=== PATIENT | female | born 1975 ===

== ENCOUNTER 2018-08-22 15:45 | Emergency (ER) | payer MEDICAID ==
[2018-08-22 15:45] VITALS: BMI 26.5
[2018-08-22 15:52] VITALS: O2SAT 99
[2018-08-22] MEDS ORDERED: Rabies Immune Globulin 150 INTLU/ML VIAL IM ONE (16:36)
--- NOTE | 2018-08-22 16:45 | ED PDOC ---
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 Patient states that she had a visit with her PMD today, who advised her to go to the ED for the vaccine series. Patient states that 2x weeks ago, she was unloading groceries from her car to her house when a stray cat ran into her house through the front door and started fighting with her dog. Patient tried to separate them when the cat subsequently bit her left hand. Wound has healed completely, and patient never sought medical attention after the bite until now. Patient denies having any complaints at present. Otherwise: (-) fever. Tetanus is up to date. Last menstrual period: 5x days ago PMD: Annalisa Ochoa MD - Animal Bite Description Of The Attack: Unprovoked Attack Description Of The Animal: Stray Animal's Immunization Status: Unknown Past Medical History Reviewed: Historical Data, Nursing Documentation, Vital Signs Vital Signs: Last Vital Signs Temp 97.6 F 08/22/18 15:48 Pulse 79 08/22/18 15:48 Resp 16 08/22/18 15:48 BP 148/97 H 08/22/18 15:48 Pulse Ox 99 08/22/18 15:48 - Medical History PMH: No Chronic Diseases - Surgical History Surgical History: Cholecystectomy, Hernia Repair, - Family History Family History: States: No Known Family Hx - Home Medications Home Medications: Ambulatory Orders Medication Instructions Recorded RX: Acetaminophen [Tylenol 325mg 650 mg PO Q4 PRN #0 tab 12/12/14 tab] RX: Levofloxacin 500 mg PO DAILY #6 tab 12/12/14 - Allergies Allergies/Adverse Reactions: Allergies Allergy/AdvReac Type Severity Reaction Status Date / Time No Known Allergies Allergy Verified 03/25/15 09:47 Review of Systems ROS Statement: Except As Marked, All Systems Reviewed And Found Negative Constitutional: Negative for: Fever Skin: Positive for: Other (bite to left hand, has healed) Physical Exam - Reviewed Nursing Documentation Reviewed: Yes Vital Signs Reviewed: Yes - Physical Exam Comments: GENERAL APPEARANCE: Patient is awake, alert, oriented x 3, resting comfortably, in no acute distress. SKIN: Warm, dry; (-) cyanosis. NECK: Supple, FROM CHEST AND RESPIRATORY: (-) rales, (-) rhonchi, (-) wheezes; breath sounds equal bilaterally. Respirations even and nonlabored. HEART AND CARDIOVASCULAR: (-) irregularity LEFT UPPER EXTREMITY: 2 healed puncture wounds to dorsum of proximal first metacarpal of left hand. (-) erythema, (-) fluctuance, (-) tenderness, (-) warmth. Full ROM of extremity. Sensation intact, capillary refill <2 seconds. NEURO AND PSYCH: Mental status as above. Gait: steady. Speech: clear. (-) facial asymmetry - ECG O2 Sat by Pulse Oximetry: 99 (RA) Pulse Ox Interpretation: Normal Medical Decision Making Medical Decision Makin:10 Clinical impression: 43 year old female: need for rabies prophylaxis, healed cat bite. Initial plan: * Rabies immunoglobulin 1,400 intlu IM once * rabavert vaccine inj 2.5 units IM once * reevaluation 1645 ED staff notified from pharmacy that immunoglobulin had to be obtained from [facility]. 1800 On re-evaluation, patient reports improvement of symptoms. On exam, patient remains AAOx3, in no acute distress. Vitals stable. Lab/Diagnostic results d/w the patient in great detail. Diagnosis of need for rabies vaccination, healed cat bite d/w the patient. Based on history, exam and diagnostic results, plan will be for follow up in ED for subsequent vaccines. Patient instructed to follow-up with pmd / referral provided / the clinic in 1- 2 days without fail. Return to the emergency room at any time for any new or worsening symptoms. Patient states she fully agrees with and understands discharge instructions. States that she agrees with the plan and disposition. Verbalized and repeated discharge instructions and plan. I have given the patient opportunity to ask any additional questions. Scribe Attestation: Documented byAlanna Brunson, acting as a scribe for Alanna Goncalves. Provider Scribe Attestation: All medical record entries made by the Scribe were at my direction and personally dictated by me. I have reviewed the chart and agree that the record accurately reflects my personal performance of the history, physical exam, medical decision making, and the department course for this patient. I have also personally directed, reviewed, and agree with the discharge instructions and dis position. Disposition - Clinical Impression Clinical Impression: Cat bite, Need for rabies vaccination - Patient ED Disposition Is Patient to be Admitted: No Counseled Patient/Family Regarding: Studies Performed, Diagnosis, Need For Followup, Rx Given - Disposition Referrals: Annalisa Ochoa MD [Family Provider] - Disposition: Routine/Home Disposition Time: 18:00 Condition: STABLE Additional Instructions: RETURN TO ED ON 08/25/18, 08/29/18, AND 09/05/18 FOR COMPLETION OF RABIES VACCINES SERIES. REGRESE A ED EL 08/25/18, 08/29/18 y 09/05/18 PARA COMPLETAR LA SERIE DE RABIES VACCINES. La atencin mdica de emergencia que recibi hoy se dirigi a raven sntomas agudos. Si le recetaron algn medicamento, llnelo y tmelo segn las indicaciones. Los sntomas pueden tardar varios toro en resolverse. Regrese al Departamento de Emergencias si raven sntomas empeoran, no mejoran o si tiene otros problemas. Comunquese con chaudhary mdico dentro de 2 toro para joshua nueva evaluacin y margarita un seguimiento o llame a martínez de los mdicos / clnicas a los que diaz sido referido y que figuran en el formulario de Informacin de visita al paciente que se incluye en chaudhary paquete de isamar. Lleve todos los documentos que le entregaron al momento del isamar junto con todos los medicamentos que est tomando para chaudhary visita de seguimiento. Nuestro tratamiento no puede reemplazar la atencin mdica continua por parte de un proveedor de atencin primaria (PCP) fuera del departamento de emergencias. Instructions: Animal and Human Bites, Rabies Immune Globulin (Human), Rabies Vaccine Forms: [facility] (Japanese) Print Language: NORWEGIAN - POJuan A Present On Arrival: None
[2018-08-22 18:45] VITALS: BP 130/78; PULSE 78; RESP 18; TEMP 98
== END 2018-08-22 18:43 | disposition home or self-care (01) ==
LOC: H.ER 15:45
DX: S69.92XA Unspecified injury of left wrist, hand and finger(s), initial encounter (principal); Z20.3 Contact with and (suspected) exposure to rabies; W55.01XA Bitten by cat, initial encounter; Z23 Encounter for immunization

== ENCOUNTER 2018-08-25 14:40 | Emergency (ER) | payer MEDICAID ==
[2018-08-25 14:41] VITALS: BMI 26.5
[2018-08-25 14:51] VITALS: BP 133/81; PULSE 62; RESP 18; TEMP 98.7; O2SAT 99
--- NOTE | 2018-08-25 15:13 | ED PDOC ---
HPI: General Adult Time Seen by Provider: 08/25/18 15:00 Chief Complaint (Nursing): Rabies Vaccine Series Chief Complaint (Provider): Rabies Vaccine Series History Per: Patient History/Exam Limitations: no limitations Onset/Duration Of Symptoms: Days (x3) Current Symptoms Are (Timing): Better Additional Complaint(s): 43 year old female presents to the ED for her second Rabies shot. Patient was initially seen on 08/22/2018 for a cat bite and was given her first dose then. Denies any complications, fever, or chills. PMD: Annalisa Ochoa Past Medical History Reviewed: Historical Data, Nursing Documentation, Vital Signs Vital Signs: Last Vital Signs Temp 98.7 F 08/25/18 14:50 Pulse 62 08/25/18 14:50 Resp 18 08/25/18 14:50 BP 133/81 08/25/18 14:50 Pulse Ox 99 08/25/18 14:50 - Medical History PMH: No Chronic Diseases - Surgical History Surgical History: Cholecystectomy, Hernia Repair, - Family History Family History: States: Unknown Family Hx - Home Medications Home Medications: Ambulatory Orders Medication Instructions Recorded Acetaminophen [Tylenol 325mg tab] 650 mg PO Q4 PRN #0 tab 12/12/14 Levofloxacin 500 mg PO DAILY #6 tab 12/12/14 - Allergies Allergies/Adverse Reactions: Allergies Allergy/AdvReac Type Severity Reaction Status Date / Time No Known Allergies Allergy Verified 08/25/18 15:04 Review of Systems ROS Statement: Except As Marked, All Systems Reviewed And Found Negative Constitutional: Negative for: Fever, Chills Physical Exam - Reviewed Nursing Documentation Reviewed: Yes Vital Signs Reviewed: Yes - Physical Exam Appears: Positive for: No Acute Distress Cardiovascular/Chest: Positive for: Regular Rate, Rhythm Respiratory: Positive for: Normal Breath Sounds. Negative for: Respiratory Distress Neurologic/Psych: Positive for: Alert, Oriented (x3). Negative for: Motor/Sensory Deficits - ECG O2 Sat by Pulse Oximetry: 99 (RA) Pulse Ox Interpretation: Normal Medical Decision Making Medical Decision Making: Time: 1505 Initial Impression: Rabies vaccine series Initial Plan: --Rabies vaccine 2.5 units IM --Pt instructed to return on 08/29 for her third dose or sooner if complications arise. Scribe Attestation: Documented by Ginna Klein, acting as a scribe for Humera Cloud PA-C. Provider Scribe Attestation: All medical record entries made by the Scribe were at my direction and personally dictated by me. I have reviewed the chart and agree that the record accurately reflects my personal performance of the history, physical exam, medical decision making, and the department course for this patient. I have also personally directed, reviewed, and agree with the discharge instructions and disposition. Disposition - Clinical Impression Clinical Impression: Rabies, need for prophylactic vaccination against - Patient ED Disposition Is Patient to be Admitted: No - Disposition Disposition: Routine/Home Disposition Time: 15:25 Condition: FAIR Instructions: Rabies Vaccine Print Language: DIVEHI
== END 2018-08-25 15:35 | disposition home or self-care (01) ==
LOC: H.ER 14:40
DX: Z29.14 Encounter for prophylactic rabies immune globulin (principal)

== ENCOUNTER 2018-08-29 11:55 | Emergency (ER) | payer MEDICAID ==
[2018-08-29 12:01] VITALS: BMI 27.6
[2018-08-29 12:02] VITALS: BP 138/81; PULSE 68; RESP 17; TEMP 98.1; O2SAT 99
--- NOTE | 2018-08-29 12:42 | ED PDOC ---
HPI: General Adult Time Seen by Provider: 08/29/18 12:41 Chief Complaint (Nursing): Rabies Vaccine Series Chief Complaint (Provider): RABIES VACCINES History Per: Patient (43 Y/O FEMALE HERE FOR THIRD RABIES VACCINE. DENIES ANY ADVERSE REACTIONS WITH INJECTION SITE. NO FEVERS/CHILLS.) Past Medical History Reviewed: Historical Data, Nursing Documentation, Vital Signs Vital Signs: Last Vital Signs Temp 98.1 F 08/29/18 12:01 Pulse 68 08/29/18 12:01 Resp 17 08/29/18 12:01 BP 138/81 08/29/18 12:01 Pulse Ox 99 08/29/18 12:01 - Surgical History Surgical History: Cholecystectomy, Hernia Repair, - Family History Family History: States: Unknown Family Hx - Home Medications Home Medications: Ambulatory Orders Medication Instructions Recorded Acetaminophen [Tylenol 325mg tab] 650 mg PO Q4 PRN #0 tab 12/12/14 Levofloxacin 500 mg PO DAILY #6 tab 12/12/14 - Allergies Allergies/Adverse Reactions: Allergies Allergy/AdvReac Type Severity Reaction Status Date / Time No Known Allergies Allergy Verified 08/25/18 15:04 Review of Systems ROS Statement: Except As Marked, All Systems Reviewed And Found Negative Physical Exam - Reviewed Nursing Documentation Reviewed: Yes Vital Signs Reviewed: Yes - Physical Exam Appears: Positive for: Well, Non-toxic, No Acute Distress Head Exam: Positive for: ATRAUMATIC, NORMAL INSPECTION, NORMOCEPHALIC Skin: Positive for: Normal Color, Warm, DRY Eye Exam: Positive for: EOMI, Normal appearance, PERRL ENT: Positive for: Normal ENT Inspection Neck: Positive for: Normal, Painless ROM Cardiovascular/Chest: Positive for: Regular Rate, Rhythm Respiratory: Positive for: CNT, Normal Breath Sounds Gastrointestinal/Abdominal: Positive for: Normal Exam, Soft Back: Positive for: Normal Inspection Extremity: Positive for: Normal ROM Neurologic/Psych: Positive for: Alert, Oriented - ECG O2 Sat by Pulse Oximetry: 99 - Progress ED Course And Treament: RABIES VACCINE 1 ML IM X 1 DOSE Disposition - Clinical Impression Clinical Impression: Need for rabies vaccination - Patient ED Disposition Is Patient to be Admitted: No - Disposition Disposition: Routine/Home Disposition Time: 12:42 Condition: FAIR Instructions: Rabies Vaccine Print Language: KISWAHILI
== END 2018-08-29 12:54 | disposition home or self-care (01) ==
LOC: H.ER 11:55
DX: Z29.14 Encounter for prophylactic rabies immune globulin (principal)

== ENCOUNTER 2018-09-05 15:42 | Emergency (ER) | payer MEDICAID ==
[2018-09-05 15:42] VITALS: BMI 27.6
[2018-09-05 16:06] VITALS: BP 128/81; PULSE 84; RESP 16; TEMP 98.4; O2SAT 98
--- NOTE | 2018-09-05 17:30 | ED PDOC ---
HPI: General Adult Time Seen by Provider: 09/05/18 16:39 Chief Complaint (Nursing): Rabies Vaccine Series Chief Complaint (Provider): Rabies Vaccine Series History Per: Patient History/Exam Limitations: no limitations Onset/Duration Of Symptoms: Days Additional Complaint(s): 43 y/o female with no significant PMHx presents to the ED for her 4th rabies vaccine. Patient presented on 08/21/2018, two weeks after being bit by a stray cat that entered house and was fighting with her dog. Patient now presents for her fourth vaccine in the rabies series. Otherwise, patient denies any reaction to prior vaccinations, fever and chills. Patient notes her left hand wound is healing with no pain. PMD: Clinic Past Medical History Reviewed: Historical Data, Nursing Documentation, Vital Signs Vital Signs: Last Vital Signs Temp 98.4 F 09/05/18 16:04 Pulse 84 09/05/18 16:04 Resp 16 09/05/18 16:04 BP 128/81 09/05/18 16:04 Pulse Ox 98 09/05/18 16:04 - Medical History PMH: No Chronic Diseases - Surgical History Surgical History: Cholecystectomy, Hernia Repair, - Family History Family History: States: Unknown Family Hx - Home Medications Home Medications: Ambulatory Orders Medication Instructions Recorded Acetaminophen [Tylenol 325mg tab] 650 mg PO Q4 PRN #0 tab 12/12/14 Levofloxacin 500 mg PO DAILY #6 tab 12/12/14 - Allergies Allergies/Adverse Reactions: Allergies Allergy/AdvReac Type Severity Reaction Status Date / Time No Known Allergies Allergy Verified 08/25/18 15:04 Review of Systems ROS Statement: Except As Marked, All Systems Reviewed And Found Negative Constitutional: Positive for: Other (4th rabies vaccine ) Physical Exam - Reviewed Nursing Documentation Reviewed: Yes Vital Signs Reviewed: Yes - Physical Exam Appears: Positive for: Well Extremity: Positive for: Other (two punctate scars at the base of her left first and second digits of the dorsal aspect of hand. No erythema, edema or drainage. ) Neurologic/Psych: Positive for: Alert, Oriented - ECG O2 Sat by Pulse Oximetry: 98 (RA) Pulse Ox Interpretation: Normal Medical Decision Making Medical Decision Making: Time: 1644 Impression: Rabies Vaccine Plan: -- Rabies Vaccine 2.5 units IM Scribe Attestation: Documented by Luis Alfredo George, acting as a scribe Harpreet Wyman PA-C. Provider Scribe Attestation: All medical record entries made by the Scribe were at my direction and persona lly dictated by me. I have reviewed the chart and agree that the record accurately reflects my personal performance of the history, physical exam, medical decision making, and the department course for this patient. I have also personally directed, reviewed, and agree with the discharge instructions and disposition. Disposition - Clinical Impression Clinical Impression: Need for rabies vaccination - Patient ED Disposition Is Patient to be Admitted: No - Disposition Referrals: Jose M Peace MD [Family Provider] - Disposition: Routine/Home Disposition Time: 17:41 Condition: STABLE Additional Instructions: Follow up with your primary care doctor as needed. Forms: [employer] (Maori) Print Language: CZECH
== END 2018-09-05 17:44 | disposition home or self-care (01) ==
LOC: H.ER 15:42
DX: Z29.14 Encounter for prophylactic rabies immune globulin (principal)